=== PATIENT | male | born 1990 | race Caucasian/White ===

== ENCOUNTER 2016-05-04 10:03 | Emergency (ER) | payer OTHER ==
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
[2016-05-04 17:23] VITALS: BP 128/76
== END 2016-05-04 17:04 | disposition home or self-care (01) ==
LOC: ED 10:03
DX: M79.1 Myalgia (principal); V49.9XXA Car occupant (driver) (passenger) injured in unspecified traffic accident, initial encounter; Y93.89 Activity, other specified; Y99.9 Unspecified external cause status; Y92.410 Unspecified street and highway as the place of occurrence of the external cause
CPT/HCPCS: 99282